=== PATIENT | male | born 1945 | race Hispanic/Latino ===

== ENCOUNTER 2017-02-15 09:34 | Day surgery (SDC) | payer MEDICARE ==
[2017-02-07 11:45] VITALS: BMI 30.7
[2017-02-15] MEDS ORDERED: Propofol 10 mg/ml Inj (20 ML) ONE (10:22)
[2017-02-15] MEDS ORDERED: Sodium Chloride 0.9% 1,000 ML IV SCH (10:45)
[2017-02-15 10:52] VITALS: TEMP 98.3; O2SAT 98
[2017-02-15 11:12] VITALS: BP 128/71; PULSE 58; RESP 19
== END 2017-02-15 12:22 | disposition home or self-care (01) ==
LOC: ENDO 09:34
PROVIDERS: ATTEND Internal Medicine Gastroenterology
DX: Z12.11 Encounter for screening for malignant neoplasm of colon (principal); K63.89 Other specified diseases of intestine; K64.8 Other hemorrhoids; Z86.010 Personal history of colon polyps
CPT/HCPCS: 45378; J2704; J7040 ×2

== ENCOUNTER 2018-06-07 06:06 | Day surgery (SDC) | payer MEDICARE ==
[2018-05-29 11:38] VITALS: BMI 31.0
[2018-06-07] MEDS ORDERED: Lidocaine 2% PF (10 ml) Amp ONE (06:31)
[2018-06-07] MEDS ORDERED: Iodixanol 320 MG/ML 200 ML BOTTLE IV ONE (06:31)
[2018-06-07] MEDS ORDERED: Nitroglycerin 50mg in D5W 0 MG/0 ML BOTTLE IV ONE (06:31)
[2018-06-07] MEDS ORDERED: Phenylephrine 10 mg/ml Inj ONE (06:31)
[2018-06-07] MEDS ORDERED: Iodixanol 320 MG/ML 100 ML BOTTLE IV ONE (06:31)
[2018-06-07] MEDS ORDERED: Iohexol 350mgl/ml 50 ML ONE (06:31)
[2018-06-07] MEDS ORDERED: Midazolam 2 MG/2 ML VIAL ONE ×2 (07:14→07:36)
[2018-06-07 07:24] VITALS: TEMP 97.8; O2SAT 95
[2018-06-07] MEDS ORDERED: Sodium Chloride 0.9% 1,000 ML IV SCH (08:15)
[2018-06-07 08:50] VITALS: RESP 16
--- NOTE | 2018-06-07 10:57 | CARDCATH ---
PROCEDURE DATE: 06/07/2018 PROCEDURES: 1. Selective left and right coronary angiography. 2. Left internal mammary arteriography. 3. Saphenous venography x2. 4. Left ventriculography. 5. PCI of saphenous vein graft to obtuse marginal branch. 6. Right femoral arteriography. 7. AngioSeal deployment. HISTORY: This is a 73-year-old male with known coronary artery disease status post prior bypass surgery who underwent a recent stress test showing evidence of anterolateral ischemia. Cardiac catheterization was advised. INDICATIONS: 1. Abnormal stress test. 2. Known coronary artery disease. FINDINGS: HEMODYNAMICS: The aortic pressure was 110/60 with left ventricular pressure of 110/15. CORONARY ANATOMY: 1. The left main stem had mild irregularities. 2. The left anterior descending artery was occluded in its early mid portion. 3. The left circumflex artery was occluded in its mid portion as well. 4. The right coronary artery was occluded in the mid portion. 5. The saphenous vein graft to the right coronary artery had mild diffuse irregularities. This supplied a moderate sized posterior descending artery which had no significant disease. 6. The saphenous vein graft to the first obtuse marginal branch had mild diffuse tapering in its proximal segment. In the mid portion of the vessel, there was a focal 80% stenosis. 7. The left internal mammary artery to the LAD was patent with good distal run off. LEFT VENTRICULOGRAPHY: Hand injection was performed in the left ventricle revealing a normal wall motion with ejection fraction of 60%. There was no aortic valve gradient noted on catheter pull back. Mitral regurgitation was not assessed. CORONARY INTERVENTION: Attempted PCI of the vein graft to the obtuse marginal branch was then performed. A 4000 units of intravenous heparin was administered and the ACT was greater than 280 seconds during the procedure. A 6-Kinyarwanda left bypass guide catheter was utilized and the lesion in the graft successfully crossed with the use of [place]yth wire. Following this, the lesion was predilated with the use of a 3.0 x 10 mm balloon. This was inflated to 10 atmospheres for 30 seconds. Subsequently, the balloon was removed and a 3.5 x 22 mm Resolute Jarred drug eluting stent was advanced and deployed at the site of the stenosis. This was inflated to 16 atmospheres for 45 seconds. There was 0% residual stenosis at the site of the lesion. FE grade 3 flow was present before and after the procedure. RIGHT FEMORAL ARTERIOGRAPHY: Right femoral arteriogram revealed no other evidence of significant disease and appropriate level of arterial puncture. The puncture site was then closed with deployment of an AngioSeal device. CONCLUSIONS: 1. Severe 3-vessel coronary artery disease. 2. Patent STEVENSON to LAD. 3. Patent RCA graft. 4. Severe stenosis of the mid SVG to the obtuse marginal branch. 5. Normal LV systolic function. 6. Successful PCI of SVG to obtuse margin with drug eluting stent as described above. RECOMMENDATIONS: 1. Aspirin and Plavix therapy will be continued for at least 1 year. 2. Continue risk factor control as advised. Daniel Xie MD cc: Leroy Jaime MD MTDD
--- NOTE | 2018-06-07 11:33 | CARD ---
APPROVED REPORT Date of service: 06/07/2018 EKG Measurement Heart [id number] <Conclusion> Marked sinus bradycardia with 1st degree AV block Right bundle branch block Abnormal ECG
[2018-06-07 14:56] VITALS: BP 120/60; PULSE 53
[2018-06-07] MEDS ORDERED: Metoprolol Succinate 50 mg XL Tab PO SCH (22:00)
== END 2018-06-07 17:45 | disposition home or self-care (01) ==
LOC: CATH 06:06 → 2RSO 08:25 → CATH 17:45
PROVIDERS: ATTEND Internal Medicine Cardiovascular Disease
DX: I25.10 Atherosclerotic heart disease of native coronary artery without angina pectoris (principal); T82.857A Stenosis of other cardiac prosthetic devices, implants and grafts, initial encounter; Y83.2 Surgical operation with anastomosis, bypass or graft as the cause of abnormal reaction of the patient, or of later complication, without mention of misadventure at the time of the procedure; Z95.1 Presence of aortocoronary bypass graft
CPT/HCPCS: 36415; 85175; 86850; 86900; 93005; 93459; 99152; 99153; C1725; C1760; C1769 ×2; C1874; C1887; C2629; C9600; J1644 ×2; J2250; J3010; J7030; J7040; Q9966; Q9967 ×2